=== PATIENT | male | born 1985 | race Caucasian/White ===

== ENCOUNTER 2018-01-01 22:47 | Emergency (ER) | payer OTHER, SELFPAY ==
[2018-01-01 23:00] VITALS: BP 154/74; PULSE 78; RESP 16; TEMP 98.2; O2SAT 98
[2018-01-01] MEDS ORDERED: DiphenhydrAMINE 50 mg/ml Inj IM STA (23:43)
--- NOTE | 2018-01-02 00:11 | ED PDOC ---
HPI: Skin/Bite Injury Time Seen by Provider: 01/01/18 23:04 Chief Complaint (Nursing): Abnormal Skin Integrity History Per: Patient, [employer] ([id number] ([place])) Additional Complaint(s): Pt. states on Monday he came in contact with some leaves while at work. The following day he developed a pruritic rash on his arms which then has spready to his face. Has not used any meds to help relieve symptoms. Denies fever, throat swelling, SOB. Past Medical History Reviewed: Historical Data, Nursing Documentation, Vital Signs Vital Signs: Last Vital Signs Temp 98.2 F 01/01/18 22:57 Pulse 78 01/01/18 22:57 Resp 16 01/01/18 22:57 BP 154/74 H 01/01/18 22:57 Pulse Ox 98 01/01/18 22:57 - Family History Family History: States: No Known Family Hx - Home Medications Home Medications: Ambulatory Orders Medication Instructions Recorded DiphenhydrAMINE [Benadryl] 50 mg PO Q6 PRN #30 cap 01/01/18 predniSONE [predniSONE Tab] 5 mg PO DAILY #67 tab 01/01/18 - Allergies Allergies/Adverse Reactions: Allergies Allergy/AdvReac Type Severity Reaction Status Date / Time No Known Allergies Allergy Verified 01/01/18 23:00 Review of Systems ROS Statement: Except As Marked, All Systems Reviewed And Found Negative Skin: Positive for: Rash Physical Exam - Physical Exam Appears: Positive for: Well, Non-toxic, No Acute Distress Skin: Positive for: Normal Color, Warm, Rash (Vesicles in linear array on b/l forearms, R hand, and maculopapular rash throughout entire face and neck) Eye Exam: Positive for: Normal appearance ENT: Positive for: Normal ENT Inspection. Negative for: Pharyngeal Erythema, Tonsillar Exudate, Tonsillar Swelling Cardiovascular/Chest: Positive for: Regular Rate, Rhythm Respiratory: Positive for: Normal Breath Sounds. Negative for: Respiratory Distress Neurologic/Psych: Positive for: Alert, Oriented (x3) - ECG O2 Sat by Pulse Oximetry: 98 - Progress ED Course And Treament: Benadryl 50mg IM ordered. Of note pt. is not driving. Disposition - Clinical Impression Clinical Impression: Poison deidra - Patient ED Disposition Is Patient to be Admitted: No - Disposition Referrals: [facility] [Outside] Disposition: Routine/Home Disposition Time: 23:44 Condition: IMPROVED Additional Instructions: MANFRED GÓMEZ, thank you for letting us take care of you today. Your provider was Jennifer Ferreira MD and you were treated for POSS RASH. The emergency medical care you received today was directed at your acute symptoms. If you were prescribed any medication, please fill it and take as directed. It may take several days for your symptoms to resolve. Return to the Emergency Department if your symptoms worsen, do not improve, or if you have any other problems. Please contact your doctor or call one of the physicians/clinics you have been referred to that are listed on the Patient Visit Information form that is included in your discharge packet. Bring any paperwork you were given at discharge with you along with any medications you are taking to your follow up visit. Our treatment cannot replace ongoing medical care by a primary care provider outside of the emergency department. Thank you for allowing the [facility] team to be part of your care today. If you had an X-Ray or CT scan: A Radiologist will review the ED reading if any change in treatment is needed we will contact you. If you had a blood, urine, or wound culture: It will take several days for the results, if any change in treatment is needed we will contact you. If you had an STI test: It will take 48 hours for the results. Please call after 1 week if you have not heard back. Prescriptions: DiphenhydrAMINE [Benadryl] 50 mg PO Q6 PRN #30 cap PRN Reason: itching or rash predniSONE [predniSONE Tab] 5 mg PO DAILY #67 tab Instructions: Poison [place], Poison [place], Poison [place] ([place]) Forms: [employer] ([place]) Print Language: INDONESIAN
== END 2018-01-02 00:35 | disposition home or self-care (01) ==
LOC: H.ER 22:47
DX: L23.7 Allergic contact dermatitis due to plants, except food (principal)
CPT/HCPCS: 96372; 99282; J1200